=== PATIENT | female | born 1960 | race Caucasian/White ===

== ENCOUNTER 2016-12-19 13:23 | Emergency (ER) | payer BC ==
[~2016-12-19] VITALS: Ht 157.5 cm; Wt 106.6 kg
--- NOTE | 2016-12-19 13:23 | NUR ---
Patient was BIBA and taken to bed 07 via gurney per EMS.
--- NOTE | 2016-12-19 13:26 | NUR ---
Patient being evaluated by Dr. Hogan at bedside.
--- NOTE | 2016-12-19 13:26 | NUR ---
Pt placed in bed 7 by EMS.
[2016-12-19] MEDS ORDERED: HYDROcodone/APAP 5/325 MG 1 TAB TAB PO ONE (13:30)
[2016-12-19] MEDS ORDERED: METHOCARBAMOL 500 MG TAB PO SCH (13:30)
[2016-12-19 13:43] VITALS: BP 144/75
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
[2016-12-19] MEDS ORDERED: ASPIR 8181 MG PO (13:54)
[2016-12-19] MEDS ORDERED: LOSARTAN POTASS50 MG PO (13:54)
[2016-12-19] MEDS ORDERED: CRESTOR10 MG PO (13:54)
[2016-12-19] MEDS ORDERED: GLUCOPHAGE500 MG PO (13:54)
--- NOTE | 2016-12-19 13:54 | NUR ---
Patient going to CT/XRAY via [facility].
--- NOTE | 2016-12-19 14:12 | NUR ---
[facility].
--- NOTE | 2016-12-19 14:39 | NUR ---
Patient appears to be resting comfortably in bed. Vital Signs within normal limits. Respirations even and unlabored. Son at bedside.
--- NOTE | 2016-12-19 14:59 | NUR ---
Patient to XRAY via gurney [facility].
--- NOTE | 2016-12-19 15:24 | NUR ---
Patient back from XRAY via [facility].
--- NOTE | 2016-12-19 15:24 | NUR ---
Patient returned from x-ray.
--- NOTE | 2016-12-19 15:35 | NUR ---
Dr. Hogan at bedside speaking with patient and family.
[2016-12-19 16:25] VITALS: BP 150/85
--- NOTE | 2016-12-19 16:25 | NUR ---
Chart checked and completed. The patient's care was reviewed and supervised by Kerry Eduardo RN.
--- NOTE | 2016-12-19 16:25 | NUR ---
Patient discharged with v/s stable. Written and verbal after care instructions given and explained. Patient alert, oriented and verbalized understanding of instructions. Ambulatory with steady gait. All questions addressed prior to discharge. ID band removed. Patient advised to follow up with PMD. Rx of robaxin,tramadol,motrin given. Patient educated on indication of medication including possible reaction and side effects. Opportunity to ask questions provided and answered.
== END 2016-12-19 16:25 | disposition home or self-care (01) ==
LOC: MED 13:23
DX: S16.1XXA Strain of muscle, fascia and tendon at neck level, initial encounter (principal); S29.012A Strain of muscle and tendon of back wall of thorax, initial encounter; S39.012A Strain of muscle, fascia and tendon of lower back, initial encounter; S09.90XA Unspecified injury of head, initial encounter; I10 Essential (primary) hypertension; E11.9 Type 2 diabetes mellitus without complications; Z79.82 Long term (current) use of aspirin; Z86.73 Personal history of transient ischemic attack (TIA), and cerebral infarction without residual deficits; V89.2XXA Person injured in unspecified motor-vehicle accident, traffic, initial encounter; Y93.89 Activity, other specified; Y92.89 Other specified places as the place of occurrence of the external cause; Y99.8 Other external cause status